=== PATIENT | female | born 1965 | race African-American/Black ===

== ENCOUNTER 2021-04-09 13:33 | Outpatient (CLI) | payer MEDICARE, MEDICAID ==
[2021-04-10 07:41] LABS: SARS-CoV-2 PCR by NAA Not Detected (NotDetected)
== END 2021-04-09 13:34 | disposition home or self-care (01) ==
LOC: CSHLAB 13:33
PROVIDERS: ATTEND Internal Medicine Gastroenterology
DX: Z20.822 Contact with and (suspected) exposure to COVID-19 (principal); K92.2 Gastrointestinal hemorrhage, unspecified
CPT/HCPCS: U0003; U0005

== ENCOUNTER 2021-04-12 10:30 | Day surgery (SDC) | payer MEDICARE, MEDICAID ==
[2021-04-10 09:31] VITALS: BMI 21.4
[2021-04-12] MEDS ORDERED: Lidocaine 1% MPF 2 ML VIAL ONE (10:50)
[2021-04-12] MEDS ORDERED: Ondansetron PF 4 MG/2 ML Vial ONE (11:03)
[2021-04-12] MEDS ORDERED: PROPOFOL 20 ML ONE (11:41)
[2021-04-12] MEDS ORDERED: Lidocaine 2% MPF 10 ML AMP (For Epidural Use) ONE (11:43)
== END 2021-04-12 13:20 | disposition home or self-care (01) ==
LOC: CSHSDC 10:30
PROVIDERS: ATTEND Internal Medicine Gastroenterology
PROC: 0DB68ZZ Excision of Stomach, Via Natural or Artificial Opening Endoscopic (ICD-10-PCS; principal; 2021-04-12)
DX: K29.50 Unspecified chronic gastritis without bleeding (principal); F32.A Depression, unspecified; I12.9 Hypertensive chronic kidney disease with stage 1 through stage 4 chronic kidney disease, or unspecified chronic kidney disease; N18.9 Chronic kidney disease, unspecified; D64.9 Anemia, unspecified; D86.9 Sarcoidosis, unspecified
CPT/HCPCS: 88305; 88312; J2405; J2704

== ENCOUNTER 2021-05-21 08:05 | Outpatient (CLI) | payer MEDICARE, OTHER | END 2021-05-21 08:06 | disposition home or self-care (01) | LOC: CSHULT 08:05 | PROVIDERS: ATTEND Internal Medicine Gastroenterology | DX: R13.10 Dysphagia, unspecified (principal); Z20.822 Contact with and (suspected) exposure to COVID-19 | CPT/HCPCS: 76536; U0003; U0005 ==

== ENCOUNTER 2021-05-21 08:40 | Outpatient (CLI) | payer MEDICARE, MEDICAID ==
[2021-05-21 20:43] LABS: SARS-CoV-2 PCR by NAA Not Detected (NotDetected)
== END 2021-05-21 08:41 | disposition home or self-care (01) ==
LOC: CSHLAB 08:40
PROVIDERS: ATTEND Internal Medicine Gastroenterology
DX: Z20.822 Contact with and (suspected) exposure to COVID-19 (principal); R13.10 Dysphagia, unspecified
CPT/HCPCS: U0003; U0005

== ENCOUNTER 2021-05-25 08:09 | Outpatient (CLI) | payer MEDICARE, MEDICAID | END 2021-05-25 08:10 | disposition home or self-care (01) | LOC: CSHRAD 08:09 | PROVIDERS: ATTEND Internal Medicine Gastroenterology | DX: R13.10 Dysphagia, unspecified (principal); K22.4 Dyskinesia of esophagus | CPT/HCPCS: 74220 ==